=== PATIENT | female | born 1985 ===

== ENCOUNTER 2018-09-26 15:54 | Emergency (ER) | payer OTHER ==
[2018-09-26 16:05] VITALS: BP 120/79; PULSE 74; RESP 20; TEMP 97.6; O2SAT 100
[2018-09-26] MEDS ORDERED: Tdap Vaccine 0.5 ml Vial (10-64 yrs) IM ONE ×2 (16:35→16:48)
--- NOTE | 2018-09-26 16:59 | RAD ---
Date of service: 09/26/2018 PROCEDURE: Right small finger radiographs. HISTORY: finger injury pain and swelling to the PIP COMPARISON: None. TECHNIQUE: AP radiograph of the right hand, as well as spot oblique and lateral images of small finger were obtained. FINDINGS: RIGHT SMALL FINGER: Transverse minimally displaced fracture distal aspect 5th middle phalanx with questionable intra-articular did extension. No other fracture identified. Remainder of the right hand (as seen on the AP view) grossly unremarkable. JOINTS: Normal. SOFT TISSUES: Normal. OTHER FINDINGS: None. IMPRESSION: Transverse minimally displaced fracture distal aspect 5th middle phalanx. Questionable intra-articular extension.
[2018-09-26] MEDS ORDERED: Lidocaine 2% Inj (20ml) INFIL ONE (17:05)
[2018-09-26] MEDS ORDERED: Lidocaine 2% MPF (5 ml) Inj ONE (17:09)
[2018-09-26] MEDS ORDERED: Bacitracin 500 Units/gm Oint Foilpak UD ONE (18:18)
--- NOTE | 2018-09-26 18:39 | C.PDOC ---
History Of Present Illness 32 year old female presents to the ED for evaluation of an injury sustained to her right 5th finger while at work one hour [employer]. Patient states a machine at work accidentally smashed her right 5th finger, causing her to sustain a laceration to the area. Patient denies any other injuries or extremity numbness/weakness at this time. - HPI Time Seen by Provider: 09/26/18 16:23 Chief Complaint (Nursing): Trauma History Per: Patient History/Exam Limitations: no limitations Onset/Duration Of Symptoms: Hrs (1) Location Of Injury: Right: Hand (5th finger ) Additional History Per: Patient Past Medical History Reviewed: Historical Data, Nursing Documentation, Vital Signs Vital Signs: Last Vital Signs Temp 97.6 F 09/26/18 16:01 Pulse 74 09/26/18 16:01 Resp 20 09/26/18 16:01 BP 120/79 09/26/18 16:01 Pulse Ox 100 09/26/18 16:01 - Medical History PMH: No Chronic Diseases Surgical History: No Surg Hx Family History: States: No Known Family Hx - Social History Hx Alcohol Use: No Hx Substance Use: No - Immunization History Hx Tetanus Toxoid Vaccination: No Hx Influenza Vaccination: No Review Of Systems Musculoskeletal: Positive for: Other (right 5th finger injury ) Physical Exam - Physical Exam Appears: Non-toxic, No Acute Distress Skin: Normal Color, Warm, Dry, Other (right 5th finger: one 3cm laceration to the volar aspect, one 1.5cm laceration to the dorsal aspect) Head: Atraumatic, Normacephalic Eye(s): bilateral: Normal Inspection Oral Mucosa: Moist Neck: Normal ROM Chest: Symmetrical Extremity: Capillary Refill (less than 2 seconds ), Deformity (right 5th finger ), No Swelling Pulses: Left Radial: Normal, Right Radial: Normal Neurological/Psych: Oriented x3, Normal Speech, Normal Cognition, Normal Motor, Normal Sensation ED Course And Treatment O2 Sat by Pulse Oximetry: 100 (on RA ) Pulse Ox Interpretation: Normal - Other Rad right hand XR X-Ray: Viewed By Me, Read By Radiologist Interpretation: Date of service: 09/26/2018. PROCEDURE: Right small finger radiographs. HISTORY: finger injury pain and swelling to the PIP. COMPARISON: None. TECHNIQUE: AP radiograph of the right hand, as well as spot oblique and lateral images of small finger were obtained. FINDINGS: RIGHT SMALL FINGER: Transverse minimally displaced fracture distal aspect 5th middle phalanx with questionable intra-articular did extension. No other fracture identified. Remainder of the right hand (as seen on the AP view) grossly unremarkable. JOINTS: Normal. SOFT TISSUES: Normal. OTHER FINDINGS: None. IMPRESSION: Transverse minimally displaced fracture distal aspect 5th middle phalanx. Questionable intra-articular extension. Laceration - Laceration Repair right 5th finger laceration #1 Wound Length (In cm): 1.5 Description Of Wound: Linear Wound Cleansed With: Betadine, Sterile Saline (<1000cc) Anesthesia: Lidocaine 2% Wound Examination: Irrigated With Saline, No FB With Wound Exploration, No Tendon Injury With Wound Exploration Wound Closure: Suture (3) Suture Technique And Material Used: Nylon (4-0) Wound Complexity: Simple right 5th finger laceration#2 Wound Length (In cm): 3 Description Of Wound: Linear Wound Cleansed With: Betadine, Sterile Saline (<1000cc) Anesthesia: Lidocaine 2% Wound Examination: Irrigated With Saline, No FB With Wound Exploration, No Tendon Injury With Wound Exploration Wound Closure: Suture (five ) Suture Technique And Material Used: Nylon (4-0) Wound Complexity: Simple Medical Decision Making Medical Decision Making: Progress: Tetanus IM and Tylenol PO given. Right hand XR ordered and reviewed. Case discussed with Dr. Pearl (hand surgeon sap pp consultant). Hand XR was sent to and reviewed by Dr. Pearl. Dr. Pearl is aware that patient has an open fracture. Instructs to irrigate wound well, close wound and instruct patient to follow up in office in two days. Patient with two lacerations to right 5th finger that are 3cm and 1.5cm , respectively. Local anesthesia achieved with 1% lidocaine digital block without epinephrine. Wound irrigated 1000cc of normal saline and pressurized betadine and explored. No FB seen. No tendon injury. 3cm laceration was closed with five 4-0 nylon sutures, 1.5cm laceration was closed with three 4-0 nylon sutures. Pt tolerated well with minimal bleeding. Disposition - Disposition Referrals: Ondina Pearl MD [Staff Provider] - [facility] [Outside] [facility] [Outside] Disposition: HOME/ ROUTINE Disposition Time: 18:37 Condition: STABLE Additional Instructions: Keep the wound wrapped and in the splint. Take medications until completed Follow up with the Hand surgeon within 1-2 days (on Saturday) without fail. Return if worsened. Prescriptions: Acetaminophen [Tylenol] 325 mg PO Q6 PRN #30 tab PRN Reason: Pain, Mild (1-3) Cephalexin [Keflex] 1,000 mg PO BID #20 capsule Instructions: Finger Fracture (DC) Forms: [employer] (Armenian) Print Language: MALAY - Clinical Impression Clinical Impression: Open finger fracture, Finger laceration - PA / COPY WRITER / Resident Statement MD/DO has reviewed & agrees with the documentation as recorded. - Scribe Statement The provider has reviewed the documentation as recorded by the Scribe (Hazel Payne) All medical record entries made by the Scribe were at my direction and personally dictated by me. I have reviewed the chart and agree that the record accurately reflects my personal performance of the history, physical exam, medical decision making, and the department course for this patient. I have also personally directed, reviewed, and agree with the discharge instructions and disposition.
== END 2018-09-26 18:44 | disposition home or self-care (01) ==
LOC: C.ER 15:54
DX: S62.630B Displaced fracture of distal phalanx of right index finger, initial encounter for open fracture (principal); W31.89XA Contact with other specified machinery, initial encounter; Y92.89 Other specified places as the place of occurrence of the external cause; Y99.0 Civilian activity done for income or pay; Z23 Encounter for immunization

== ENCOUNTER 2018-09-29 08:40 | Emergency (ER) | payer OTHER ==
[2018-09-29 08:56] VITALS: BP 118/76; PULSE 73; RESP 16; TEMP 98.2; O2SAT 100
--- NOTE | 2018-09-29 09:09 | C.PDOC ---
History Of Present Illness 32 year old female presents to the ED for wound check. Patient sustained an injury her right 5th digit while at her workplace and was evaluated in the ED on 09/26. During her ED visit, X-ray was done and she was found to have sustained an open fracture to her right 5th digit. Her lacerations were mended and patient was instructed to follow up with Dr. Pearl in office today, 09/29. Patient misunderstood these instructions and presents to the ED for re-evaluation. She describes her pain as 7/10 and states she has been compliant with her antibiotic and pain medications. Patient denies any new trauma/injuries. Time Seen by Provider: 09/29/18 09:05 Chief Complaint (Nursing): Wound Check History Per: Patient History/Exam Limitations: no limitations Onset/Duration Of Symptoms: Days Ago (3) Current Symptoms Are (Timing): Still Present Location Of Injury: Right: Hand (5th digit ) Quality Of Symptoms: Painful Pain Scale Rating Of: 7 Additional History Per: Patient Past Medical History Reviewed: Historical Data, Nursing Documentation, Vital Signs Vital Signs: Last Vital Signs Temp 98.2 F 09/29/18 08:51 Pulse 73 09/29/18 08:51 Resp 16 09/29/18 08:51 BP 118/76 09/29/18 08:51 Pulse Ox 100 09/29/18 08:51 - Medical History PMH: No Chronic Diseases Surgical History: No Surg Hx Family History: States: Unknown Family Hx - Social History Hx Alcohol Use: No Hx Substance Use: No - Immunization History Hx Tetanus Toxoid Vaccination: No Hx Influenza Vaccination: No Review Of Systems Skin: Positive for: Other (wound check s/p open fracture to right 5th digit ) Physical Exam - Physical Exam Appears: Non-toxic, No Acute Distress Skin: Warm, Dry, Other (splint removed. relatively fresh laceration to the medial aspect of right 5th digit, semi-circular laceration around the volar aspect of right 5th digit. no active bleeding ) Head: Atraumatic, Normacephalic Eye(s): bilateral: Normal Inspection Extremity: Normal ROM, Capillary Refill (less than 2 seconds ) Pulses: Left Radial: Normal, Right Radial: Normal Neurological/Psych: Oriented x3, Normal Speech, Normal Cognition ED Course And Treatment O2 Sat by Pulse Oximetry: 100 (on RA) Pulse Ox Interpretation: Normal Medical Decision Making Medical Decision Making: Impression: 32 year old female for wound check s/p open fracture to right 5th digit Plan: * bacitractin TOP * splint * reassess and disposition Progress: Bacitracin TOP applied. Spint was re-applied by optics manufacturing technician and checked by me. Case discussed with Dr. Pearl's office staff, who state they will contact the patient to schedule an appointment. On reassessment, patient is resting comfortably, showing no signs of distress and is stable for discharge. Patient advised to follow up with Dr. Pearl within 1-2 days for further evaluation. Advised to return to the ED if symptoms persist or worsen. Disposition - Disposition Referrals: Ondina Pearl MD [Staff Provider] - Disposition: HOME/ ROUTINE Disposition Time: 09:21 Condition: STABLE Additional Instructions: Linden Zuñiga Forms: Gen Discharge Inst Albanian, [facility] (Albanian), Work Excuse - POA Present On Arrival: None - Clinical Impression Clinical Impression: Open finger fracture, Visit for wound check - Scribe Statement The provider has reviewed the documentation as recorded by the Scribe (Hazel Payne) Provider Attestation: All medical record entries made by the Scribe were at my direction and personally dictated by me. I have reviewed the chart and agree that the record accurately reflects my personal performance of the history, physical exam, medical decision making, and the department course for this patient. I have also personally directed, reviewed, and agree with the discharge instructions and disposition.
[2018-09-29] MEDS ORDERED: Bacitracin 500 Units/gm Oint Foilpak UD ONE (09:41)
[2018-09-29] MEDS ORDERED: Bacitracin 500 Units/gm Oint Foilpak UD TOP ONE (09:43)
== END 2018-09-29 09:50 | disposition home or self-care (01) ==
LOC: C.ER 08:40
DX: Z48.00 Encounter for change or removal of nonsurgical wound dressing (principal); S62.626 Displaced fracture of middle phalanx of right little finger; X58.XXXD Exposure to other specified factors, subsequent encounter

== ENCOUNTER 2018-10-27 08:34 | Outpatient (CLI) | payer OTHER | END 2018-10-27 08:35 | disposition home or self-care (01) | LOC: C.RADH 08:34 ==

== ENCOUNTER 2018-11-20 08:23 | Outpatient (CLI) | payer OTHER | END 2018-11-20 08:24 | disposition home or self-care (01) | LOC: C.RADH 08:23 ==